=== PATIENT | female | born 2000 | race Caucasian/White ===

== ENCOUNTER → 2024-11-11 | Outpatient (CLI) | payer OTHER ==
[2024-11-11 18:32] LABS: PLATELET COUNT, AUTOMATED 315 10^3/uL (150-450)
[2024-11-11 19:23] LABS: HIV 1&2 SCREEN NEGATIVE (NEGATIVE)
[2024-11-11 19:31] LABS: HEPATITIS C VIRUS ABY INDEX < 0.02 INDEX (<0.8)
[2024-11-11 20:17] LABS: Trichomonas vaginalis (AMP) NOT DETECTED (NEGATIVE)
[2024-11-11 20:41] LABS: GC DNA AMPLIFICATION NEGATIVE (NEGATIVE)
== END ==
LOC: M PLALAB 14:22
PROVIDERS: ATTEND Student in an Organized Health Care Education/Training Program
DX: Z34.81 Encounter for supervision of other normal pregnancy, first trimester (principal)

== ENCOUNTER → 2025-01-12 | Outpatient (CLI) | payer OTHER | LOC: M WHC 14:35 | PROVIDERS: ATTEND Nurse Practitioner Family | DX: Z34.82 Encounter for supervision of other normal pregnancy, second trimester (principal); Z3A.21 21 weeks gestation of pregnancy ==

== ENCOUNTER 2025-01-24 17:59 | Outpatient (CLI) | payer OTHER ==
[~2025-01-24] VITALS: Ht 170.2 cm; Wt 122.4 kg
[2025-01-24] MEDS ORDERED: PRENTAB9 PO (18:21)
[2025-01-24 18:23] VITALS: BP 106/62
[2025-01-24] MEDS ORDERED: HOME MED LIST COMPLETE! XX SCH (18:25)
[2025-01-24 19:15] LABS: PLATELET COUNT, AUTOMATED 296 10^3/uL (150-450)
== END 2025-01-24 23:20 | disposition home or self-care (01) ==
LOC: M LDO 17:59
PROVIDERS: ATTEND Obstetrics & Gynecology
DX: O26.892 Other specified pregnancy related conditions, second trimester (principal); O99.212 Obesity complicating pregnancy, second trimester; W00.0XXA Fall on same level due to ice and snow, initial encounter; Y92.9 Unspecified place or not applicable; Y93.9 Activity, unspecified; Y99.9 Unspecified external cause status; E66.01 Morbid (severe) obesity due to excess calories; Z3A.22 22 weeks gestation of pregnancy
CPT/HCPCS: 36415; 76815; 85027; 85460; 86900; 86901; G0463